=== PATIENT | male | born 1980 | race Caucasian/White ===

== ENCOUNTER 2019-12-15 12:02 | Emergency (ER) | payer OTHER, SELFPAY ==
[2019-12-15 12:08] VITALS: BP 149/91; PULSE 69; RESP 18; TEMP 37.4; O2SAT 96; BMI 24.4
--- NOTE | 2019-12-15 12:21 | ED_ITS ---
Entered by Shadia Rodriguez, acting as scribe for Nasreen Rodarte MD Dec 15, 2019 12:02 HPI - Eye Problem General: Chief complaint: Eye Problems Stated complaint: FB in eye Time Seen by Provider: 12/15/19 12:19 Source: patient, family and RN notes reviewed Mode of arrival: ambulatory Limitations: no limitations History of Present Illness: HPI Narrative: 39 yo male presents to ED with complaints of L eye pain. 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 He said he got a large piece out when he flushed his eye with water (flushed for 5 minutes) but he said there is still a small one there. His eye kong and has a dull pain. He said he also flushed his L eye with Visine. 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) Severity: severe If Pain, Quality: burning and aching Context: other (welding) Associated symptoms: Reports no associated symptoms Treatments Prior to Arrival: irrigated eye and OTC eye drops Review of Systems Eyes: Reports: change in vision, eye redness and increased production of tears PFSH ED PFSH: Social History Smoking and tobacco status: current every day smoker Physical Exam Const: COMMON NORMALS: no apparent distress, oriented x3 and alert GENERAL APPEARANCE: cooperative and well developed; not in distress and not diaphoretic ORIENTATION/CONSCIOUSNESS: Yes awake, Yes oriented to person, Yes oriented to place and Yes oriented to time HENMT: COMMON NORMALS: normocephalic, head/scalp atraumatic, external ears normal, external nose normal and moist oral mucous membranes HEAD & SCALP: normocephalic and atraumatic FACE & SINUS: normal facial exam; no facial tenderness NOSE: external nose normal EXTERNAL EAR: Yes external ears normal MOUTH: oral and palatal mucosa normal, lip normal and tongue normal TEETH & GINGIVA: no abnormal tooth and associated gingiva THROAT: posterior oropharynx normal and uvula midline Eye: COMMON NORMALS: PERRL and EOMs intact bilaterally PUPIL: Yes PERRL Neck/C-Spine: COMMON NORMALS: full ROM, supple and no JVD GENERAL: Yes normal visual inspection and Yes trachea midline CERVICAL SPINE: No cervical spine tenderness Lymph: LYMPHATIC: no lymphadenopathy noted Chest: COMMONS NORMALS: inspection of chest normal Resp: COMMON NORMALS: normal respiratory effort, no use of accessory muscles and clear to auscultation bilaterally EFFORT & INSPECTION: Yes able to speak in complete sentences and Yes symmetric chest movement AUSCULTATION: clear to auscultation bilaterally Cardio: COMMON NORMALS: no JVD, regular rate, regular rhythm, no gallops, no murmurs and peripheral pulses 2+ throughout RATE: regular rate RHYTHM: regular rhythm PERIPHERAL PULSES: pulses 2+ throughout GI: COMMON NORMALS: normal to inspection, nondistended, normoactive bowel sounds, soft to palpation and non-tender PALPATION: Yes soft Back/Pelvis: COMMON NORMALS: thoracic and lumbar spine normal to inspection and thoraco-lumbar ROM normal Extremity: COMMON NORMALS: normal to inspection, full ROM and normal capillary refill Neuro: COMMON NORMALS: oriented x3, CN's II-XII intact bilaterally, moves all extremities, no focal motor deficits and no sensory deficits noted S ENSORIUM/ORIENTATION: Yes alert, Yes oriented to person, Yes oriented to place and Yes oriented to time Psych: COMMON NORMALS: mental status grossly normal, thought process normal, cooperative, affect normal, speech normal and activity/motor behavior normal SPEECH: Yes normal speech THOUGHT PROCESS: normal thought process Skin: COMMON NORMALS: no rashes or lesions noted and skin turgor normal GENERAL SKIN EXAM: no rashes or lesions noted and turgor normal Course ED [facility]: [facility] he says he was told that he needed a shot in his eye. He was reassured that was not the plan - he got tetracine, erythromycin ointment and had an eye exam with flourescien. He did have a corneal abrasion and the inner lower lid is red and irritated. The metal was hot when it hit his eye and I suspect there is some burn element. Tdap up to date. Follow up and return precautions discussed. Vital Signs: Vital signs: Vital Signs Temperature 99.3 F 12/15/19 12:08 Pulse Rate 82 12/15/19 13:50 Respiratory Rate 18 12/15/19 13:50 Blood Pressure 145/68 12/15/19 13:50 Pulse Oximetry 98 12/15/19 13:50 Discharge Plan Discharge Patient Disposition: Home, Self-Care Clinical Impression: Corneal abrasion Condition: Stable Prescriptions: No Action Suboxone RF: 0 Discharge Orders: Discharge Order (Routine); Ordered 12/15/19 Ordered By: Nasreen Rodaret Patient Instructions: Corneal Abrasion (ED) Activity Restrictions/Additional Instructions: Use the diluted tetracaine as needed for pain - a few drops at a time. Use the antibiotic ointment 4 times a day until the pain is gone. Use ibuprofen for pain as well. Return or see an eye doctor in 2 days if not significantly improved. Discharge Date/Time: 12/15/19 13:52 Coding Level of Care Code ED Private Duty Nurse for Chg Fwcarter Exam Problem Focused The documentation recorded by the Jennifer hollis Valerie R, accurately reflects the service I personally performed and the decisions made by Cayden vieyra Kathryn L, MD Dec 15, 2019 12:02
[2019-12-15] MEDS: ibuprofen 600 mg Tablet PO (13:04)
[2019-12-15] MEDS: tetracaine 0.5% Op Soln 4 mL Btl 1 DROP EYE-LEFT (13:09)
[2019-12-15] MEDS: erythromycin Op Oint 1 gm 1 APPLIC EYE-LEFT (13:44)
[2019-12-15] MEDS: fluorescein 1 mg Strip EYE-LEFT (13:45)
[2019-12-15 13:50] VITALS: BP 145/68; PULSE 82; RESP 18; O2SAT 98
== END 2019-12-15 13:52 | disposition home or self-care (01) ==
PROVIDERS: Emergency Provider Emergency Medicine
DX: S05.02XA Injury of conjunctiva and corneal abrasion without foreign body, left eye, initial encounter (principal); F17.200 Nicotine dependence, unspecified, uncomplicated
CPT/HCPCS: 99281; 99283

== ENCOUNTER 2020-02-20 13:56 | Emergency (ER) | payer OTHER, SELFPAY ==
[2020-02-20 14:03] VITALS: BP 148/64; PULSE 87; RESP 18; TEMP 37.1; O2SAT 97; BMI 24.4
--- NOTE | 2020-02-20 14:25 | W.ED.WOUNDLC ---
HPI - Wound/Laceration General: Chief Complaint: Wound/Laceration Stated Complaint: head lac Time Seen by Provider: 02/20/20 14:00 Source: patient Mode of arrival: ambulatory Limitations: no limitations History of Present Illness: HPI narrative: 39-year-old male who states he tripped in his garage and fell and has a laceration to his left eyebrow. He states this happened roughly 1 hour ago. He denies any loss of consciousness and he denies any headache currently. He had no vomiting. He denies any other injuries. He has no pain currently. Onset (ago): minute(s) Location: scalp Associated symptoms: Denies chills, fever(s), nausea or vomiting Review of Systems Const: Denies: fever, chills, body aches or change in appetite Eyes: Denies: blurry vision or eye discomfort ENMT: Denies: throat pain or dental pain Card: Denies: chest pain Resp: Denies: shortness of breath GI: Denies: abdominal pain, nausea, vomiting or diarrhea : Denies: painful urination Musc: Denies: neck pain or back pain Skin/Breast: Denies: rash Neuro: Denies: headache Psych: Denies: depression Kaleb/Lymph: Denies: easy bruising All/Imm: Denies: hives PFSH ED PFSH: Social History Smoking and tobacco status: current every day smoker Physical Exam Const: COMMON NORMALS: no apparent distress, oriented x3 and healthy appearing HENMT: COMMON NORMALS: normocephalic HEAD & SCALP: normocephalic OTHER: 5cm laceration to left eyebrow linear Eye: COMMON NORMALS: PERRL and EOMs intact bilaterally PUPIL: Yes PERRL Neck/C-Spine: COMMON NORMALS: full ROM and supple Chest: COMMONS NORMALS: inspection of chest normal and palpation of chest normal Resp: COMMON NORMALS: normal respiratory effort, no retractions, no use of accessory muscles and clear to auscultation bilaterally AUSCULTATION: clear to auscultation bilaterally Cardio: COMMON NORMALS: regular rate, regular rhythm and no murmurs RATE: regular rate RHYTHM: regular rhythm GI: COMMON NORMALS: normal to inspection, nondistended, normoactive bowel sounds, soft to palpation, non-tender and no masses PALPATION: Yes soft Extremity: COMMON NORMALS: normal to inspection and full ROM Neuro: COMMON NORMALS: oriented x3, moves all extremities and no focal motor deficits Psych: COMMON NORMALS: mental status grossly normal, thought process normal and cooperative THOUGHT PROCESS: normal thought process Skin: COMMON NORMALS: no rashes or lesions noted and no wounds GENERAL SKIN EXAM: no rashes or lesions noted Procedures Laceration Laceration 1: Site: face Side (If applicable): left Size (cm): 5 Description: linear Depth: simple, single layer Local Anesthetic: lidocaine 1% Amount of anesthesia used (mL): 10 Pre-repair: wound explored and irrigated extensively Skin layer closed with: nylon Size (cm): 6-0 Number of sutures: 6 Technique: simple, interrupted Course Vital Signs: Vital signs: Vital Signs Temperature 98.7 F 02/20/20 14:03 Pulse Rate 87 02/20/20 14:03 Respiratory Rate 18 02/20/20 14:03 Blood Pressure 148/64 02/20/20 14:03 Pulse Oximetry 97 02/20/20 14:03 MDM - Wound/Laceration MDM Narrative: Medical decision making narrative: Patient presents with a head laceration that was repaired in the ER. He had no loss of consciousness no headache and does not require a head CT. He had no other injuries during his fall. He states he is up-to-date on his tetanus. Patient is to return in 1 week for suture removal. He understands and agrees the plan. Discharge Plan Discharge Patient Disposition: Home, Self-Care Clinical Impression: Laceration Head injury Qualifiers: Encounter type: initial encounter Qualified Code(s): S09.90XA - Unspecified injury of head, initial encounter Condition: Stable Prescriptions: No Action Suboxone RF: 0 Discharge Orders: Discharge Order (Routine); Ordered 02/20/20 Ordered By: Avani White Referrals: Gómez Vuong [Primary Care Provider] - Discharge Diet: Advance as tolerated Discharge Activity: Resume usual activity Patient Instructions: Laceration (ED) Activity Restrictions/Additional Instructions: return in 7 days for suture removal Coding Level of Care Code ED 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
[2020-02-20 14:35] VITALS: BP 148/64; PULSE 68; RESP 17; O2SAT 99
== END 2020-02-20 14:45 | disposition home or self-care (01) ==
PROVIDERS: Emergency Provider Emergency Medicine; PCP Internal Medicine
DX: S01.112A Laceration without foreign body of left eyelid and periocular area, initial encounter (principal); W01.0XXA Fall on same level from slipping, tripping and stumbling without subsequent striking against object, initial encounter; F17.210 Nicotine dependence, cigarettes, uncomplicated
CPT/HCPCS: 12013; 12345; 99281; 99282

== ENCOUNTER → 2020-07-23 14:34 | Outpatient (BNVA) | payer OTHER, SELFPAY | PROVIDERS: PCP Internal Medicine; Visit Provider Internal Medicine | DX: E11.9 Type 2 diabetes mellitus without complications (principal); B19.20 Unspecified viral hepatitis C without hepatic coma | CPT/HCPCS: 80053; 85025; 87522 ==

== ENCOUNTER → 2020-12-03 13:57 | Outpatient (BNVA) | payer OTHER, SELFPAY | PROVIDERS: PCP Internal Medicine; Visit Provider Internal Medicine | DX: B19.20 Unspecified viral hepatitis C without hepatic coma (principal) | CPT/HCPCS: 87522 ==

== ENCOUNTER 2020-12-06 08:21 | Outpatient (CLI) | payer OTHER, SELFPAY ==
--- NOTE | 2020-12-06 08:26 | US_ITS ---
WS: [id number] TESTICULAR ULTRASOUND HISTORY: TESTICULAR PAIN COMPARISON: None available. TECHNIQUE: Real-time and color Doppler imaging or utilized to perform a testicular ultrasound. Right testicle: 4.2 cm x 3.0 cm x 2.4 cm. Normal size and echogenicity. No mass or torsion. Scattered echogenic foci throughout the testicle. N o mass. Normal color Doppler is present throughout. Systolic and diastolic velocities are both present. No significant hydrocele. Right epididymis: RIGHT epididymal head is very mildly prominent with decreased echogenicity. Color D oppler was not obtained of the epididymal head. Left testicle: 5.2 cm x 3.3 cm x 1.9 cm. Normal size and echogenicity. No mass or torsion. Scattered punctate echogenic foci. The Doppler within the LEFT testicle has increased as compared to the RIGHT. There is normal systolic and diastolic velocities. No mass. No significant hydrocele. Left epididymis: Normal epididymis with no increased vascularity. US/US scrotum [id number] IMPRESSION: 1. Very mild increased vascularity within the LEFT testicle suggesting mild or chitis. 2. No testicular mass. 3. Mildly enlarged heterogeneous RIGHT epididymal head but no color Doppler wa s obtained to evaluate for increased vascularity. Cannot exclude a mild RIGHT e pididymitis.
== END 2020-12-06 08:22 | disposition home or self-care (01) ==
LOC: RAD 08:24
PROVIDERS: PCP Family Medicine; Visit Provider Urology
DX: N50.819 Testicular pain, unspecified (principal)
CPT/HCPCS: 76870; 81003

== ENCOUNTER 2020-12-19 22:18 | Emergency (ER) | payer OTHER, SELFPAY ==
[2020-12-19 22:19] VITALS: BP 128/96; PULSE 119; RESP 22; TEMP 37.4; O2SAT 97; BMI 23.0
--- NOTE | 2020-12-19 22:32 | ECG_ITS ---
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 Measurements Intervals [place] Rate: 104 P: 66 SC: 128 QRS: 69 QRSD: 118 T: 56 QT: 355 QTc: 468 Interpretive Statements SINUS TACHYCARDIA INCOMPLETE RIGHT BUNDLE BRANCH BLOCK [90+ ms QRS DURATION, TERMINAL R IN V1/V2, 40+ ms S IN I/aVL/V4/V5/V6] POSSIBLE LATERAL MYOCARDIAL INFARCTION , OF INDETERMINATE AGE [30 ms Q WAVE IN I/aVL/V5/V6] POSSIBLE INFERIOR MYOCARDIAL INFARCTION , PROBABLY OLD [30 ms Q WAVE IN II/aVF] Compared to ECG 11/30/2018 02:38:46 Incomplete right bundle-branch block now present Sinus rhythm no longer present Myocardial infarct finding still present Electronically Signed On 12-20-2020 16:06:34 COMMUNITY SERVICE OFFICER by Jose Salguero M.D. [id number]
--- NOTE | 2020-12-19 22:32 | XRR_ITS ---
PROCEDURE INFORMATION: Exam: XR Chest, 1 View Exam date and time: 12/19/2020 10:38 PM Age: 40 years old Clinical indication: Patient HX: Overdose, denies chest complaint TECHNIQUE: Imaging protocol: XR of the chest Views: 1 view. COMPARISON: CR Chest 1 [place] [id number] 11/30/2018 1:36 AM FINDINGS: Lungs: Mildly prominent lung markings. No focal consolidation. Pleural spaces: Unremarkable. No pleural effusion. No pneumothorax. Heart/Mediastinum: Stable cardiomediastinal silhouette. Bones/joints: Unremarkable. XR/XR chest 1V portable [id number] IMPRESSION: Mildly prominent lung markings, which can be seen with mild pulmonary congestion. Pneumonia should be excluded clinically.
--- NOTE | 2020-12-19 22:34 | W.ED.OVERDOS ---
HPI - Overdose General: Chief Complaint: Overdose Stated Complaint: fent od Time Seen by Provider: 12/19/20 22:28 History of Present Illness: HPI Narrative: This patient is a 40-year-old male who comes in by EMS. He was found unresponsive at [facility] [place] station. He admits to shooting up with fentanyl. He said he is never used that before and has never had an opiate overdose before. EMS gave 2 mg of Narcan IN and then established an IO and gave another 2 mg of Narcan. The first dose was at approximately 2145 and the second dose at approximately 2200. The patient is awake and alert now. He is complaining of being cold but denies other concerns. complaint: accidental overdose Onset (ago): hour(s) (1) : Intent: other (Recreational) Context: Accidental Overdose: wanted to get high Review of Systems Const: Reports: chills ENMT: Denies: odynophagia Card: Denies: chest pain Resp: Denies: dyspnea Neuro: Denies: headache(s) PFS ED PFSH: Medical History Left groin pain Family History Grandfather Diabetes Social History Smoking and tobacco status: current every day smoker Alcohol intake: current Alcohol intake frequency: few times a week Adopted: No History of recent travel: No Physical Exam Const: COMMON NORMALS: patient oriented x3, no limitations and alert GENERAL APPEARANCE: cooperative and anxious ORIENTATION/CONSCIOUSNESS: Yes awake, Yes oriented to person, Yes oriented to place and Yes oriented to time HENMT: HEAD & SCALP: normal to inspection FACE & SINUS: normal facial exam Eye: GENERAL EYE: appearance normal, both eyes and all related structures Neck/C-Spine: COMMON NORMALS: supple, no meningeal signs and no JVD Chest: COMMONS NORMALS: normal inspection of the chest Resp: COMMON NORMALS: normal respiratory effort, No use of accessory muscles and clear to auscultation bilaterally AUSCULTATION: clear to auscultation bilaterally Cardio: COMMON NORMALS: no JVD, regular rhythm and No murmurs present (Cardio) RATE: tachycardic RHYTHM: regular rhythm GI: COMMON NORMALS: Normal to inspection, nondistended, normoactive bowel sounds present, Soft to palpation and non-tender INSPECTION: Yes normal to inspection AUSCULTATION: Yes normoactive bowel sounds PALPATION: Yes Soft to palpation Back/Pelvis: COMMON NORMALS: thoracic and lumbar spine normal to inspection Extremity: COMMON NORMALS: normal to inspection Neuro: COMMON NORMALS: patient oriented x3, moves all extremities, no focal motor deficits and no sensory deficits noted SENSORIUM/ORIENTATION: Yes alert, Yes oriented to person, Yes oriented to place and Yes oriented to time MENINGEAL SIGNS: Yes no meningeal signs Psych: COMMON NORMALS: mental status grossly normal, cooperative and normal affect Skin: COMMON NORMALS: no rashes or lesions noted and turgor normal GENERAL SKIN EXAM: no rashes or lesions noted and turgor normal Course ED course: Patient presents with a fentanyl overdose. He responded to Narcan. He has no other concerning aspects. Chest x-ray was done and did not show pulmonary edema. Sats are good. He was observed for about an hour and a half after the last dose of Narcan and then signed out AMA. He was awake and alert at the time. Vital Signs: Vital signs: Vital Signs Temperature 99.4 F 12/19/20 22:19 Pulse Rate 110 H 12/19/20 23:41 Respiratory Rate 18 12/19/20 23:41 Blood Pressure 128/96 12/19/20 22:19 Pulse Oximetry 93 12/19/20 23:41 MDM - Overdose Lab Data: Labs: Lab Results 12/19/20 12/19/20 Range/Units 23:15 23:15 WBC 10.8 H (4.0-10.0) 10^3/ uL RBC 4.25 (4.1-5.3) 10^6/u L Hgb 14.1 (11.7-16.6) g/dL Hct 40.9 L (42.0-52.0) % MCV 96.2 H (80-94) fL MCH 33.2 (28.0-34.0) pg MCHC 34.5 (30.0-36.0) g/dL RDW 12.0 L (12.1-15.1) % Plt Count 209 (130-400) 10^3/c mm MPV 10.1 (7.4-10.4) fL Neut % (Auto) 73.6 % Lymph % (Auto) 14.2 % Plumas % (Auto) 10.8 % Eos % (Auto) 0.9 % Baso % (Auto) 0.2 % Neut # (Auto) 7.96 H (1.8-7.7) 10^3/u L Lymph # (Auto) 1.5 (0.8-4.8) 10^3/u L Plumas # (Auto) 1.2 H (0.2-0.9) 10^3/u L Eos # (Auto) 0.1 (0.0-0.8) 10^3/u L Baso # (Auto) 0.0 (0.0-0.1) 10^3/u L Nucleated RBC % (a uto) 0 % Nucleated RBCs # 0.0 /100WBC Sodium 138 (136-145) mmol/L Potassium 3.5 (3.5-5.1) mmol/L Chloride 99 (98-107) mmol/L Carbon Dioxide 26 (22-29) mmol/L Anion Gap 16.5 (5-19) BUN 10 (6-20) mg/dL Creatinine 0.7 (0.7-1.2) mg/dL GFR Calculation 125.5 (90-130) mL/min Glucose 69 (65-115) mg/dL Calculated Osmolal ity 283 L (285-295) mOsm/k g Calcium 8.8 (8.5-10.5) mg/dL Total Bilirubin 1.3 H (0.15-1.2) mg/dL AST 64 H (0-40) U/L ALT 31 (0-41) U/L Alkaline Phosphata se 61 (40-130) IU/L Total Protein 6.6 (6.6-8.7) g/dL Albumin 4.2 (3.5-5.2) g/dL Globulin 2.4 (1.3-4.6) g/dL Discharge Plan Discharge Patient Disposition: Left Against Medical Advice Prescriptions: No Action No Known Home Medications RF: 0 Referrals: Cris Nicole MD [Primary Care Provider] - Coding Level of Care Code ED Moisture Conditioner Operator for g Fwd Exam Comprehensive
[2020-12-19 23:25] LABS: Basophils % 0.2 %; Eosinophils # 0.1 10^3/uL (0.0-0.8); Eosinophils % 0.9 %; Hematocrit 40.9 % (42.0-52.0); Hemoglobin 14.1 g/dL (11.7-16.6); Lymphocytes # 1.5 10^3/uL (0.8-4.8); Lymphocytes % 14.2 %; Mean Corpuscular HGB Conc 34.5 g/dL (30.0-36.0); Mean Corpuscular Hemoglobin 33.2 pg (28.0-34.0); Mean Corpuscular Volume 96.2 fL (80-94); Mean Platelet Volume 10.1 fL (7.4-10.4); Monocytes # 1.2 10^3/uL (0.2-0.9); Monocytes % 10.8 %; Neutrophils # 7.96 10^3/uL (1.8-7.7); Neutrophils % 73.6 %; Nucleated Red Blood Cells % 0 %; Platelet Count 209 10^3/cmm (130-400); Red Blood Count 4.25 10^6/uL (4.1-5.3); White Blood Count 10.8 10^3/uL (4.0-10.0)
[2020-12-19 23:41] VITALS: PULSE 110; RESP 18; O2SAT 93
[2020-12-19 23:49] LABS: Alanine Aminotransferase 31 U/L (0-41); Albumin Level 4.2 g/dL (3.5-5.2); Alkaline Phosphatase 61 IU/L (40-130); Anion Gap 16.5 (5-19); Aspartate Amino Transferase 64 U/L (0-40); Blood Urea Nitrogen 10 mg/dL (6-20); Calcium 8.8 mg/dL (8.5-10.5); Carbon Dioxide 26 mmol/L (22-29); Chloride 99 mmol/L (98-107); Creatinine Clr Calc Pharmacy 150.5325; Globulin 2.4 g/dL (1.3-4.6); Glomerular Filtration Rate 125.5 mL/min (90-130); Glucose 69 mg/dL (65-115); Osmolality Calculated 283 mOsm/kg (285-295); Potassium 3.5 mmol/L (3.5-5.1); Sodium 138 mmol/L (136-145); Total Bilirubin 1.3 mg/dL (0.15-1.2); Total Protein 6.6 g/dL (6.6-8.7)
== END 2020-12-19 23:42 | disposition left against medical advice (07) ==
LOC: ER 22:56
PROVIDERS: Emergency Provider Emergency Medicine; PCP Family Medicine
DX: T40.411A Poisoning by fentanyl or fentanyl analogs, accidental (unintentional), initial encounter (principal); F17.210 Nicotine dependence, cigarettes, uncomplicated; Z53.21 Procedure and treatment not carried out due to patient leaving prior to being seen by health care provider
CPT/HCPCS: 71045; 80053; 85025; 93005; 99283

== ENCOUNTER → 2021-01-29 12:52 | Outpatient (BNVA) | payer OTHER, SELFPAY | PROVIDERS: PCP Family Medicine; Visit Provider Surgery | DX: R10.32 Left lower quadrant pain (principal); Z20.822 Contact with and (suspected) exposure to COVID-19 | CPT/HCPCS: 87635 ==

== ENCOUNTER 2021-02-05 07:05 | Day surgery (SDC) | payer OTHER, SELFPAY ==
[2021-02-05] VITALS (10 sets, daily range): BP systolic 99–144; BP diastolic 66–110; PULSE 70–85; RESP 12–18; TEMP 36.3–36.9; O2SAT 90–99
[2021-02-05] MEDS: sodium chloride 0.9% 1,000 ML 30 ML IV (07:31)
--- NOTE | 2021-02-05 07:45 | ANES.PREANE2 ---
Pre-Anesthetic Assessment Pre-Anesthetic Assessment: Height/Weight: Height 1.8 m Temp Pulse Resp BP Pulse Ox 97.4 F L 79 18 136/87 95 02/05/21 07:20 02/05/21 07:20 02/05/21 07:20 02/05/21 07:20 02/05/21 07:20 Preop Diagnosis: left inguinal hernia Proposed Procedure: Operation Date: 02/05/21 08:35 Proposed Procedures p LAPAROSCOPIC LEFT INGUINAL HERNIA REPAIR WITH MESH- 77226 r10.32(Left) - Gregory Harris MD Familial anesthetic complications: None Was Beta Mireille taken within 24 hours: N/A Was Clonidine taken within 24 hours: N/A Last intake: Intake Last Liquid Date 02/04/21 Last Liquid Time 23:00 Last Solid Date 02/04/21 Last Solid Time 18:00 Social: Social History: Alcohol (2-3 beers a night), Tobacco and No alcohol Comment: hx of IV drug abuse - denies recent use Exam: Pre-Anes Outpt Exam: alert, oriented x 3, clear to auscultation bilaterally and regular rate & rhythm Airway: Cervical ROM: WNL MP: 2 Dentition: Chipped and Other (multiple missing, poor dentition) Hepatic: Hepatic: Hepatitis (hep C ) Neuropsych: Comments: still on suboxone Anesthetic Plan: ASA status: 2 Anesthesia: General Risk of > 500 ml blood loss (7ml/kg in children): No Meds/Allergies Current Medications: Current Medications Generic Name Dose Route Start Last Admin Trade Name Freq PRN Reason Stop Dose Admin Sodium Chloride 1,000 mls @ 30 ml s/hr 02/05/21 07:15 02/05/21 07:31 Sodium Chloride 0.9% IV 30 mls/hr .Q24H GLENDY Administration PFSH Anesthesia PFSH: Medical History (Updated 12/27/20 @ 00:00 by ) Hepatitis C Left groin pain Family History Grandfather Diabetes Social History Smoking and tobacco status: current every day smoker Alcohol intake: current Alcohol intake frequency: few times a week Adopted: No History of recent travel: No Data Anesthesia Cardiac Studies: No Data to Display
--- NOTE | 2021-02-05 07:59 | P.HP_ITS ---
Same Day Surgery H&P Indication for Procedure/HPI DATE OF PROCEDURE: February 05, 2021 CHIEF COMPLAINT/INDICATIONFOR SURGICAL PROCEDURE: Left inguinal hernia PREOP DIAGNOSIS: left inguinal hernia PLANNED PROCEDRUE: Operation Date: 02/05/21 08:35 Proposed Procedures p LAPAROSCOPIC LEFT INGUINAL HERNIA REPAIR WITH MESH- 62295 r10.32(Left) - Gregory Harris MD Medications/Allergies* Home Medications Medication Instructions Recorded Confirmed Type buprenorphine-naloxone [Suboxone] 1 tab SUBLINGUAL DAILY 02/04/21 02/05/21 History Allergies/Adverse Reactions Allergy/AdvReac Type Severity Reaction Status Date / Time No Known Allergies Allergy Verified 02/05/21 07:14 Current Medications: Generic Name Dose Route Start Last Admin Trade Name Freq PRN Reason Stop Dose Admin Sodium Chloride 1,000 mls @ 30 mls/hr 02/05/21 07:15 02/05/21 07:31 Sodium Chloride 0.9% IV 30 mls/hr .Q24H GLENDY Administration Pertinent History/Comorbid Conditions* Medical History (Updated 12/27/20 @ 00:00 by ) Hepatitis C Left groin pain Family History (Updated 07/10/20 @ 13:00 by Christin Rutherford [place]) Diabetes Grandfather Social History Smoking and tobacco status: current every day smoker Alcohol intake: current Alcohol intake frequency: few times a week Adopted: No History of recent travel: No Pertinent Exam Findings alert, oriented x 3 and regular rate & rhythm Recommendations Surgery/Procedure today Coding Level of Care Code 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
--- NOTE | 2021-02-05 09:35 | PM.OP ---
Operative Report Date of procedure: February 05, 2021 Pre-op Diagnosis: left inguinal hernia Post-op Diagnosis: 1. Reducible left indirect inguinal hernia Procedure Done: Laparoscopic total extraperitoneal repair of indirect left inguinal hernia with Surgimax 3D mesh 16 x 10 cm Pathology: none sent Surgeon: Gregory Harris Anesthesia: General Condition: stable Disposition: PACU Procedure: The patient was taken to the operating room. After IV antibiotic was administered, the abdomen was prepped and draped in a sterile manner. Using a 15 blade, a 1.0 cm transverse incision was made infraumbilically on the left side. Subcutaneous tissue was divided using electrocautery and the anterior rectus sheath divided using an 11 blade. The rectus muscle was retracted laterally and the extraperitoneal space identified. A 11 mm port was placed and 12 mm of pneumoperitoneum was created. A 10 mm 30? scope was introduced and the retrorectus space was opened using the camera up to the pubic symphysis and 5 mm ports were placed in the midline, one 2-fingerbreadths above the pubic symphysis and the other midway between these two ports under direct visualization. Blunt dissection was carried out to open up the tissue in the midline and to the pubic symphysis, which was identified. The dissection was then carried laterally where the iliopubic tract was identified. There was no femoral, obturator or direct hernia noted. The inferior epigastric artery was identified and dissection was carried posterior to it and laterally, the space was opened up to the level of the umbilicus superior to the anterior superior iliac spine. I then proceeded to dissect out the spermatic cord and the indirect hernial sac was reduced . 16 x 10cm Surgimax 3D mesh was rolled and introduced through the 10 mm port and rolled laterally and apposed well against the abdominal wall to cover the myopectineal orifice completely. 10 Cc of 0.5% Marcaine was infiltrated into the preperitoneal space. The extraperitoneal space was desufflated under direct visualization to ensure no slippage of hernial sac under the mesh. All ports were removed, the anterior rectus fascia at the infraumbilical port closed using figure of eight 0 Vicryl sutures, subcutaneous tissue approximated using 3-0 Vicryl sutures and skin at all three port sites were closed using running subcuticular 4-0 Monocryl sutures and Dermabond. 10 mL of 0.5% Marcaine was infiltrated at the port sites. The patient was stable throughout the procedure.
--- NOTE | 2021-02-05 10:00 | SUR.PHASEI ---
0959- ORAL AIRWAY REMOVED, SIMPLE MASK AT 8LPM SAT 98%
[2021-02-05] MEDS: HYDROcodone-acetaminophen 5-325 mg Tablet 1 TAB PO (10:32)
--- NOTE | 2021-02-05 15:51 | ANE.PACU2 ---
Inpatient post-anesthesia follow up: Airway intact: Yes Vital signs: Temperature 98.5 F Pulse Rate 70 Respiratory Rate 16 Blood Pressure 111/70 Pulse Oximetry 96 Oxygen Delivery Me thod Room Air Oxygen Flow Rate 8 Fraction of Inspir ed Oxygen Hydration adequate: Yes Nausea and vomiting: No Pain level: 2 Mental status: Baseline
== END 2021-02-05 11:02 | disposition home or self-care (01) ==
PROVIDERS: PCP Family Medicine; Visit Provider Surgery
PROC: (CPT 49650; principal; 2021-02-05 08:35)
DX: K40.90 Unilateral inguinal hernia, without obstruction or gangrene, not specified as recurrent (principal); Z86.19 Personal history of other infectious and parasitic diseases; F17.210 Nicotine dependence, cigarettes, uncomplicated
CPT/HCPCS: 49650; 96365; C1781; J0690; J1100; J1885; J2250; J2405; J2704; J2710; J3490; J7030

== ENCOUNTER 2022-02-11 09:19 | Emergency (ER) | payer OTHER, SELFPAY ==
[2022-02-11 09:27] VITALS: BP 137/107; PULSE 147; RESP 20; TEMP 36.9; O2SAT 98; BMI 23.7
--- NOTE | 2022-02-11 09:37 | XR_ITS ---
WS: [id number] PORTABLE CHEST HISTORY: dyspnea/cough COMPARISON: 12/19/2020 Lungs are clear and well expanded. Improved aeration since the prior study. Mild pulmonary hyperexpan deysi. No pleural effusion or pneumothorax. Cardiac size: Normal. Mediastinum/Aorta: Normal mediastinum. No osseous abnormality seen. XR/XR chest 1V portable [id number] IMPRESSION: Mild hyperexpansion likely from emphysema. No pneumonia.
--- NOTE | 2022-02-11 09:38 | ECG_ITS ---
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 Measurements Intervals [place] Rate: 147 P: 82 SC: 125 QRS: 81 QRSD: 89 T: 84 QT: 299 QTc: 468 Interpretive Statements SINUS TACHYCARDIA, POSSIBLE ATRIAL FLUTTER MODERATE ST DEPRESSION [0.05+ mV ST DEPRESSION] Compared to ECG 12/19/2020 22:42:19 ST (T wave) deviation now present Incomplete right bundle-branch block no longer present Myocardial infarct finding no longer present Electronically Signed On 02-11-2022 23:17:44 CDT by Jose Salguero M.D. [id number]
[2022-02-11 10:12] LABS: Basophils # 0.1 10^3/uL (0.0-0.1); Basophils % 0.4 %; Eosinophils # 0.1 10^3/uL (0.0-0.8); Eosinophils % 1.1 %; Hematocrit 58.1 % (42.0-52.0); Hemoglobin 20.2 g/dL (11.7-16.6); Lymphocytes # 2.7 10^3/uL (0.8-4.8); Lymphocytes % 21.7 %; Mean Corpuscular HGB Conc 34.8 g/dL (30.0-36.0); Mean Corpuscular Hemoglobin 32.5 pg (28.0-34.0); Mean Corpuscular Volume 93.4 fl (80-94); Mean Platelet Volume 10.9 fL (7.4-10.4); Monocytes # 0.9 10^3/uL (0.2-0.9); Neutrophils # 8.49 10^3/uL (1.8-7.7); Neutrophils % 69.3 %; Nucleated Red Blood Cells % 0 %; Platelet Count 296 10^3/cmm (130-400); Red Blood Count 6.22 10^6/uL (4.1-5.3); Red Cell Distribution Width 12.4 % (12.1-15.1); White Blood Count 12.2 10^3/uL (4.0-10.0)
[2022-02-11 10:15] VITALS: BP 133/108; PULSE 129; RESP 16; O2SAT 96
--- NOTE | 2022-02-11 10:15 | ED_ITS ---
HPI - Arrhythmia/Palpitations General: Chief Complaint: Arrhythmia/Palpitations Stated Complaint: SOB/excessive sweating/extreme fatigue Time Seen by Provider: 02/11/22 09:26 History of Present Illness: 41-year-old male presents emergency room complaining of tachycardia. Patient admits to having been taking an Adderall from another prescription. He is also on methadone. He has had rapid heart rates in the past he is extremely fidgety and appears to be under the influence when he first arrives. Later in the visit he was smoking enter the exam room smelled strongly of cigarette smoke he did have cigarettes on his person. He denies any chest pain. He is not had any known history of any arrhythmias. MD complaint: rapid heart beat and heart racing Onset (ago): hour(s) Duration: constant Severity: moderate Context: occurred during rest Associated symptoms: Reports anxiety; Deny cough, diaphoresis, muscle cramps, nausea, paresthesias, pre-syncope, sense of impending doom, short of breath, syncope or vomiting Review of Systems Const: Denies: fever(s), chills, body aches or diaphoresis ENMT: Denies: throat pain, ear or mastoid pain, nasal discharge or nasal congestion Card: Denies: syncope or pre-syncope Resp: Denies: dyspnea, productive cough or non-productive cough GI: Denies: nausea or vomiting : Denies: flank pain, dysuria, urinary frequency or urinary urgency Musc: Denies: muscle cramps Skin/Breast: Denies: rash or pruritus Psych: Reports: anxiety [facility] ED PFSH: Medical History Hepatitis C Surgical History Status post left inguinal hernia repair (02/05/21) Family History Grandfather Diabetes Social History Smoking and tobacco status: current every day smoker Alcohol intake: current Alcohol intake frequency: few times a week Adopted: No History of recent travel: No Physical Exam Const: COMMON NORMALS: no acute distress GENERAL APPEARANCE: cooperative, comfortable and anxious NUTRITIONAL APPEARANCE: thin ORIENTATION/CONSCIOUSNESS: Yes awake, Yes oriented to person, Yes oriented to place and Yes oriented to time HENMT: COMMON NORMALS: normocephalic, atraumatic and hearing grossly normal bilaterally HEAD & SCALP: normocephalic and atraumatic Neck/C-Spine: COMMON NORMALS: full ROM, no lymphadenopathy, supple and no JVD Resp: COMMON NORMALS: normal respiratory effort, No retractions, No use of accessory muscles and clear to auscultation bilaterally AUSCULTATION: clear to auscultation bilaterally Cardio: COMMON NORMALS: no JVD, regular rhythm and No murmurs present (Cardio) RATE: tachycardic RHYTHM: regular rhythm GI: COMMON NORMALS: Soft to palpation and No hepatosplenomegaly present AUSCULTATION: Yes normoactive bowel sounds PALPATION: Yes Soft to palpation, No Tenderness to palpation present (GI), No Guarding due to palpation present (GI) and Yes No hepatosplenomegaly present : COMMON NORMALS: Yes no CVA tenderness BLADDER/KIDNEY EXAM: Yes no CVA tenderness Back/Pelvis: COMMON NORMALS: no CVA tenderness Extremity: COMMON NORMALS: normal to inspection, capillary refill normal, no clubbing, cyanosis or edema, no calf tenderness and no pedal edema Neuro: SENSORIUM/ORIENTATION: Yes oriented to person, Yes oriented to place and Yes oriented to time Skin: COMMON NORMALS: no rashes or lesions noted GENERAL SKIN EXAM: no rashes or lesions noted Course Vital Signs: Vital signs: Vital Signs Temperature 98.5 F 02/11/22 09:27 Pulse Rate 129 H 02/11/22 10:15 Respiratory Rate 16 02/11/22 10:15 Blood Pressure 133/108 02/11/22 10:15 Pulse Oximetry 96 02/11/22 10:15 MDM - Arrhythmia/Palpitations Medical Decision Making Patient positive for amphetamines. He was very agitated and fidgety in the room difficult time to even get him to sit still he kept pacing the room he also has polycythemia he has had that in the past we try to give him fluids with the plan to recheck a CBC but he became anxious and wanted to leave before this was completed. We will have case management try to get him into hematology. Recommend that he not take any more Adderall or any other amphetamines or methamphetamines. Medical Records I reviewed the patient's medical records. Lab Data I reviewed the patient's lab results. : 02/11/22 10:02 02/11/22 10:50 Radiology Impressions Chest X-Ray 02/11/22 09:37 IMPRESSION: Mild hyperexpansion likely from emphysema. No pneumonia. Laboratory Results WBC 12.2 10^3/uL (4.0-10.0) H 02/11/22 10:02 RBC 6.22 10^6/uL (4.1-5.3) H 02/11/22 10:02 Hgb 20.2 g/dL (11.7-16.6) H 02/11/22 10:02 Hct 58.1 % (42.0-52.0) H 02/11/22 10:02 MCV 93.4 fl (80-94) 02/11/22 10:02 MCH 32.5 pg (28.0-34.0) 02/11/22 10:02 MCHC 34.8 g/dL (30.0-36.0) 02/11/22 10:02 RDW 12.4 % (12.1-15.1) 02/11/22 10:02 Plt Count 296 10^3/cmm (130-400) 02/11/22 10:02 MPV 10.9 fL (7.4-10.4) H 02/11/22 10:02 Neut % (Auto) 69.3 % 02/11/22 10:02 Lymph % (Auto) 21.7 % 02/11/22 10:02 [place] % (Auto) 7.0 % 02/11/22 10:02 Eos % (Auto) 1.1 % 02/11/22 10:02 Baso % (Auto) 0.4 % 02/11/22 10:02 Neut # (Auto) 8.49 10^3/uL (1.8-7.7) H 02/11/22 10:02 Lymph # (Auto) 2.7 10^3/uL (0.8-4.8) 02/11/22 10:02 [place] # (Auto) 0.9 10^3/uL (0.2-0.9) 02/11/22 10:02 Eos # (Auto) 0.1 10^3/uL (0.0-0.8) 02/11/22 10:02 Baso # (Auto) 0.1 10^3/uL (0.0-0.1) 02/11/22 10:02 Nucleated RBC % (auto) 0 % 02/11/22 10:02 Nucleated RBCs # 0.0 /100WBC 02/11/22 10:02 Sodium 133 mmol/L (136-145) L 02/11/22 10:50 Potassium 4.9 mmol/L (3.5-5.1) 02/11/22 10:50 Chloride 100 mmol/L (98-107) 02/11/22 10:50 Carbon Dioxide 18 mmol/L (22-29) L 02/11/22 10:50 Anion Gap 19.9 (5-19) H 02/11/22 10:50 BUN 15 mg/dL (6-20) 02/11/22 10:50 Creatinine 1.0 mg/dL (0.7-1.2) 02/11/22 10:50 GFR Calculation 82.8 mL/min (90-130) L 02/11/22 10:50 Glucose 116 mg/dL (65-115) H 02/11/22 10:50 Calculated Osmolality 278 mOsm/kg (285-295) L 02/11/22 10:50 Calcium 10.1 mg/dL (8.5-10.5) 02/11/22 10:50 Total Bilirubin 1.7 mg/dL (0.15-1.2) H 02/11/22 10:50 AST 27 U/L (0-40) 02/11/22 10:50 ALT 27 U/L (0-41) 02/11/22 10:50 Alkaline Phosphatase 82 IU/L (40-130) 02/11/22 10:50 Troponin T Baseline 18 ng/L (0-15) H 02/11/22 10:50 Total Protein 7.3 g/dL (6.6-8.7) 02/11/22 10:50 Albumin 5.0 g/dL (3.5-5.2) 02/11/22 10:50 Globulin 2.3 g/dL (1.3-4.6) 02/11/22 10:50 Urine Color Yellow (Yellow) 02/11/22 10:03 Urine Appearance Clear (CLEAR) 02/11/22 10:03 Urine pH 6.5 (5-7) 02/11/22 10:03 Ur Specific [place] 1.005 (1.005-1.030) 02/11/22 10:03 Urine Protein Neg (Negative) 02/11/22 10:03 Urine Glucose (UA) Norm (Normal) 02/11/22 10:03 Urine Ketones Negative (Negative) 02/11/22 10:03 Urine Blood Neg (Negative) 02/11/22 10:03 Urine Nitrate Negative (Negative) 02/11/22 10:03 Urine Bilirubin Neg (Negative) 02/11/22 10:03 Urine Urobilinogen Norm mg/dL (Negative) 02/11/22 10:03 Ur Leukocyte Esterase Negative (Negative) 02/11/22 10:03 Urine Opiates Screen Negative ng/mL (Negative) 02/11/22 10:03 Ur Barbiturates Screen Negative ng/mL (Negative) 02/11/22 10:03 Ur Phencyclidine Scrn Negative ng/mL (Negative) 02/11/22 10:03 Ur Amphetamines Screen Positive ng/mL (Negative) H 02/11/22 10:03 U Benzodiazepines Scrn Negative ng/mL (Negative) 02/11/22 10:03 Urine Cocaine Screen Negative ng/mL (Negative) 02/11/22 10:03 U Marijuana (THC) Screen Positive ng/mL (Negative) H 02/11/22 10:03 Discharge Plan Discharge Patient Disposition: Home Clinical Impression: Amphetamine use, Sinus tachycardia, Polycythemia Condition: Stable Prescriptions: No Action methadone 10 mg Tablet 60 mg PO QAM 0RF ibuprofen 200 mg Tablet 400 - 600 mg PO Q4H PRN (Reason: Pain) 0RF Discharge Orders: Discharge ED (Routine); Ordered 02/11/22 Ordered By: Moisés Nguyen Referrals: Cris Nicole MD [Primary Care Provider] - Discharge Diet: Usual diet Patient Instructions: Polycythemia Vera (DC), Opioid Safety Activity Restrictions/Additional Instructions: We did not complete the evaluation or the fluids because you insisted on leaving early. Recommend you follow-up with your primary care doctor you do need to see etl informatica developer to evaluate your polycythemia. Coding Level of Care Code ED Driver License Technician for Chg Fwd Exam Comprehensive
[2022-02-11 10:17] LABS: Add Urine Microscopic? NO; Charge for UA Resulting for Rev
[2022-02-11] MEDS: sodium chloride 0.9% 1,000 ML 999 ML IV (10:19)
[2022-02-11] MEDS: metoprolol tartrate 50 mg Tablet PO (10:20)
[2022-02-11] MEDS: metoprolol tartrate 1 mg/1 mL SDV 5 mL 5 MG IVP (10:20)
[2022-02-11 10:40] LABS: Blood Urine Neg (Negative); Glucose Urine UA Norm (Normal); Ketones Urine Negative (Negative); Nitrate Urine Negative (Negative); Protein Urine Neg (Negative); Specific Gravity, Urine 1.005 (1.005-1.030); Urine Appearance Clear (CLEAR); Urine Color Yellow (Yellow); pH Urine 6.5 (5-7)
[2022-02-11 10:41] LABS: Bilirubin Urine Neg (Negative); Leukocyte Esterase Urine Negative (Negative); Urobilinogen Urine Norm (Negative)
[2022-02-11 11:02] LABS: Amphetamines Screen Urine Positive (Negative); Barbiturates Screen Urine Negative (Negative); Benzodiazepines Screen Urine Negative (Negative); Cocaine Screen Urine Negative (Negative); Opiate Screen Urine Negative (Negative); PCP Screen Urine Negative (Negative); THC Screen Urine Positive (Negative)
[2022-02-11] MEDS: LORazepam 2 mg/mL INJ 1 mL IVP (11:12)
[2022-02-11 11:39] LABS: Alanine Aminotransferase 27 U/L (0-41); Alkaline Phosphatase 82 IU/L (40-130); Blood Urea Nitrogen 15 mg/dL (6-20); Calcium 10.1 mg/dL (8.5-10.5); Carbon Dioxide 18 mmol/L (22-29); Chloride 100 mmol/L (98-107); Globulin 2.3 g/dL (1.3-4.6); Glomerular Filtration Rate 82.8 mL/min (90-130); Glucose 116 mg/dL (65-115); Osmolality Calculated 278 mOsm/kg (285-295); Sodium 133 mmol/L (136-145); Total Bilirubin 1.7 mg/dL (0.15-1.2); Total Protein 7.3 g/dL (6.6-8.7)
[2022-02-11 11:40] LABS: Troponin(5th) Baseline 18 ng/L (0-15)
[2022-02-11 11:54] LABS: Anion Gap 19.9 (5-19); Aspartate Amino Transferase 27 U/L (0-40); Potassium 4.9 mmol/L (3.5-5.1)
--- NOTE | 2022-02-11 12:38 | PC.NURSE ---
Pt was found smoking in pt's room. Pt was asked to refrain from smoking and security called.
--- NOTE | 2022-02-16 14:41 | DCPLANNER ---
Addendum entered by Peg Aldridge 03/05/22 16:41: Patient had an appointment scheduled with Dr. Curtis - appointment was cancelled. Addendum entered by Peg Aldridge 02/24/22 07:55: Patient has a follow up appointment scheduled for Thursday, February 24, 2022 at 10:[address] Curtis at oncology. Clinic will call patient with appointment information. Addendum entered by Peg Aldridge 02/16/22 14:49: Patient has [employer] insurance, clinical case manager sent patients information to [facility] with [facility] for the authorization process could be started. Original Note: informatics manager had message to schedule a follow up appointment for patient with hematology. informatics manager called [place] Snow, infection prevention [facility]. Patients information be printed and reviewed. Clinic will call patient with appointment information.
== END 2022-02-11 12:42 | disposition home or self-care (01) ==
PROVIDERS: Emergency Provider Family Medicine; PCP Family Medicine
DX: F15.90 Other stimulant use, unspecified, uncomplicated (principal); F17.210 Nicotine dependence, cigarettes, uncomplicated; D75.1 Secondary polycythemia; J43.9 Emphysema, unspecified; R00.0 Tachycardia, unspecified
CPT/HCPCS: 71045; 80053; 80306; 81003; 84484; 85025; 93005; 96374; 99283; J2060; J3490; J7030

== ENCOUNTER 2022-09-09 00:31 | Emergency (ER) | payer SELFPAY ==
[2022-09-09 00:34] VITALS: BP 155/80; PULSE 128; RESP 18; TEMP 36.6; O2SAT 98; BMI 22.3
[2022-09-09 10:52] LABS: HIV 1 & 2 Antibody Non-Reactive (Non-Reactiv); HIV 1 & 2 Antigen Non-Reactive (Non-Reactiv)
[2022-09-09 11:11] LABS: Hepatitis A Antibody IgM Non-Reactive (Nonreactive); Hepatitis B Core AB, Total Non-Reactive (Nonreactive); Hepatitis B Surface AB 18.4 (11.5-1000); Hepatitis B Surface Antigen Non-Reactive (Nonreactive)
[2022-09-09 11:45] LABS: Hepatitis C Virus Antibody Reactive (Nonreactive)
[2022-09-11 10:59] LABS: HEP C RNA Viral Load Quant <1.18 NOT DETECTED Log IU/mL (NOT DETECTED); HEP C RNA Viral Load Quant <15 NOT DETECTED IU/mL (NOT DETECTED)
== END 2022-09-09 00:47 | disposition home or self-care (01) ==
LOC: ER 00:45
PROVIDERS: Emergency Provider Family Medicine; PCP Family Medicine
DX: Z53.8 Procedure and treatment not carried out for other reasons (principal)
CPT/HCPCS: 86705; 86706; 86709; 86803; 87340; 87522; 87806; 99283

== ENCOUNTER 2022-11-05 15:00 | Emergency (ER) | payer OTHER, SELFPAY ==
--- NOTE | 2022-11-05 15:04 | XR_ITS ---
WS: [id number] Portable AP upright chest, 11/05/2022 Clinical Data: od Comparison: Portable chest, 02/11/2022 Findings: No nodules, masses or effusions are seen. The heart is normal. The pulmonary vascularity is not increased. No pneumonia or pneumothorax is seen. XR/XR chest 1V portable [id number] Impression: Negative chest.
[2022-11-05 15:11] VITALS: BP 120/69; PULSE 94; RESP 24; TEMP 36.4; O2SAT 95; BMI 22.3
[2022-11-05 15:16] VITALS: BP 120/69
--- NOTE | 2022-11-05 15:19 | W.ED.OVERDOS ---
HPI - Overdose General: Chief Complaint: Overdose Stated Complaint: OVERDOSE Time Seen by Provider: 11/05/22 15:03 Source: patient and EMS Mode of arrival: EMS Limitations: no limitations History of Present Illness: 42-year-old male who is here after using drugs he states that he was shooting up what he believes was heroin. He states that he was doing it recreationally and was not an overdose attempt EMS was called because he had minimal responsiveness when they arrived he is awake he is awake here answering all my questions appropriately he denies SI or HI. Review of Systems Const: Denies: fever(s), chills, body aches or change in appetite Eyes: Denies: blurry vision or eye discomfort ENMT: Denies: throat pain or dental pain Card: Denies: chest pain Resp: Denies: dyspnea GI: Denies: abdominal pain, nausea, vomiting or diarrhea : Denies: dysuria Musc: Denies: neck pain or back pain Skin/Breast: Denies: rash Neuro: Denies: headache(s) Psych: Denies: depression Kaleb/Lymph: Denies: easy bruising All/Imm: Denies: urticaria PFSH ED PFSH: Medical History Hepatitis C Surgical History Status post left inguinal hernia repair (02/05/21) Family History Grandfather Diabetes Social History Smoking and tobacco status: current every day smoker Alcohol intake: current Alcohol intake frequency: few times a week Adopted: No History of recent travel: No Physical Exam Const: COMMON NORMALS: patient oriented x3 OTHER: under influence of drugs HENMT: COMMON NORMALS: normocephalic and atraumatic HEAD & SCALP: normocephalic and atraumatic Eye: COMMON NORMALS: Equal, round and reactive pupils present and EOMs intact bilaterally PUPIL: Yes Equal, round and reactive pupils present Neck/C-Spine: COMMON NORMALS: full ROM and supple Chest: COMMONS NORMALS: normal inspection of the chest and normal palpation of entire chest wall Resp: COMMON NORMALS: normal respiratory effort, No retractions, No use of accessory muscles and clear to auscultation bilaterally AUSCULTATION: clear to auscultation bilaterally Cardio: COMMON NORMALS: regular rate, regular rhythm and No murmurs present (Cardio) RATE: regular rate RHYTHM: regular rhythm GI: COMMON NORMALS: Normal to inspection, nondistended, normoactive bowel sounds present, Soft to palpation, non-tender and no masses PALPATION: Yes Soft to palpation Extremity: COMMON NORMALS: normal to inspection and full ROM Neuro: COMMON NORMALS: patient oriented x3, moves all extremities and no focal motor deficits Psych: COMMON NORMALS: mental status grossly normal, Normal thought process present and cooperative THOUGHT PROCESS: Normal thought process present Skin: COMMON NORMALS: no rashes or lesions noted and no wounds GENERAL SKIN EXAM: no rashes or lesions noted Course Vital Signs: Vital signs: Vital Signs Temperature 97.6 F 11/05/22 15:11 Pulse Rate 97 11/05/22 15:33 Respiratory Rate 24 H 11/05/22 15:33 Blood Pressure 120/89 11/05/22 15:33 Pulse Oximetry 94 11/05/22 15:33 Oxygen Delivery Me thod 11/05/22 15:11 MDM - Overdose Medical Decision Making Patient presents here with heroin abuse he has been awake and alert here patient wants to leave informed and would like to observe him and check labs he refuses he is not suicidal or homicidal he is ambulatory he is able answer my questions appropriately and able to make medical decisions. Patient signed out AGAINST MEDICAL ADVICE. Lab Data Radiology Impressions Chest X-Ray 11/05/22 15:04 Impression: Negative chest. Discharge Plan Discharge Patient Disposition: Left Against Medical Advice Clinical Impression: Drug abuse Condition: Stable Prescriptions: No Action naloxone 4 mg/actuation spray,non-aerosol 4 mg intranasal Q2M PRN (Reason: Opioid Overdose) Rx Instructions: spray 1 dose into ONE nostril; alternate nostrils w each dose until help arrives methadone 10 mg Tablet 60 mg PO QAM ibuprofen 200 mg Tablet 400 - 600 mg PO Q4H PRN (Reason: Pain) Referrals: Cris Nicole MD [Primary Care Provider] - Coding Level of Care Code ED Metal Sheet Roller Operator for Chg Fwd Exam Comprehensive
[2022-11-05 15:20] VITALS: BP 120/69
[2022-11-05 15:33] VITALS: BP 120/89; PULSE 97; RESP 24; O2SAT 94
[2022-11-05 15:46] LABS: Basophils % 0.2 %; Eosinophils # 0.1 10^3/uL (0.0-0.8); Eosinophils % 0.7 %; Hematocrit 41.8 % (42.0-52.0); Hemoglobin 13.8 g/dL (11.7-16.6); Lymphocytes # 2.3 10^3/uL (0.8-4.8); Lymphocytes % 22.3 %; Mean Corpuscular Hemoglobin 30.9 pg (28.0-34.0); Mean Corpuscular Volume 93.5 fl (80-94); Mean Platelet Volume 10.7 fL (7.4-10.4); Monocytes # 1.2 10^3/uL (0.2-0.9); Monocytes % 11.1 %; Neutrophils # 6.84 10^3/uL (1.8-7.7); Neutrophils % 65.3 %; Nucleated Red Blood Cells % 0 %; Platelet Count 378 10^3/cmm (130-400); Red Blood Count 4.47 10^6/uL (4.1-5.3); Red Cell Distribution Width 13.2 % (12.1-15.1); White Blood Count 10.5 10^3/uL (4.0-10.0)
[2022-11-05 16:16] LABS: Alanine Aminotransferase 634 U/L (0-41); Albumin Level 4.2 g/dL (3.5-5.2); Alkaline Phosphatase 163 U/L (40-130); Anion Gap 17.3 (5-19); Aspartate Amino Transferase 308 U/L (0-40); Blood Urea Nitrogen 12 mg/dL (6-20); Calcium 9.2 mg/dL (8.5-10.5); Carbon Dioxide 25 mmol/L (22-29); Chloride 99 mmol/L (98-107); Globulin 3.1 g/dL (1.3-4.6); Glomerular Filtration Rate 124.3 mL/min (90-130); Glucose 143 mg/dL (65-115); Osmolality Calculated 284 mOsm/kg (285-295); Potassium 5.3 mmol/L (3.5-5.1); Sodium 136 mmol/L (136-145); Total Bilirubin 1.5 mg/dL (0.15-1.2); Total Protein 7.3 g/dL (6.6-8.7)
[2022-11-05 16:17] LABS: Acetaminophen < 5.0 ug/mL (10-30); Alcohol Level < 10 mg/dL (0-10); Salicylate < 0.3 mg/dL (3-10)
== END 2022-11-05 15:33 | disposition left against medical advice (07) ==
PROVIDERS: Emergency Provider Emergency Medicine; PCP Family Medicine
DX: F11.10 Opioid abuse, uncomplicated (principal); Z53.21 Procedure and treatment not carried out due to patient leaving prior to being seen by health care provider; Z86.19 Personal history of other infectious and parasitic diseases; F17.210 Nicotine dependence, cigarettes, uncomplicated
CPT/HCPCS: 71045; 80053; 80307; 85025; 99285